=== PATIENT | male | born 1970 | race Two or more races ===

== ENCOUNTER 2021-10-06 13:11 | Emergency (ER) | payer MEDICAID ==
[~2021-10-06] VITALS: Ht 180.3 cm; Wt 71.0 kg
[2021-10-06 13:14] VITALS: BP 156/100
[2021-10-06] MEDS ORDERED: MORPHINE SULFATE 4 MG/ML CPJ (NOT FOR IM USE) IV STA (13:36)
[2021-10-06] MEDS ORDERED: ONDANSETRON HCL 4MG/2ML INJ IV STA (13:36)
[2021-10-06] MEDS ORDERED: KETOROLAC 30MG/ML VIAL IV STA (13:36)
[2021-10-06] MEDS ORDERED: SODIUM CHLORIDE 0.9% 1,000 ML IV ONE (13:45)
[2021-10-06 13:53] LABS: CLARITY URINE CLEAR (CLEAR); COLOR URINE YELLOW (YELLOW); KETONES URINE NEGATIVE (NEGATIVE); LEUKOCYTE ESTERASE URINE NEGATIVE (NEGATIVE); NITRITE URINE NEGATIVE (NEGATIVE); OCCULT BLOOD URINE NEGATIVE (NEGATIVE); PH URINE 7.5 (4.5-8.0); PROTEIN URINE NEGATIVE (NEGATIVE); SPECIFIC GRAVITY URINE 1.024 (1.005-1.030); UROBILINOGEN URINE 0.2 E.U./dL (0.2-1.0)
[2021-10-06 14:08] LABS: EOSINOPHILS % 3.4 % (0.0-5.0); HEMATOCRIT. 45.6 % (42.0-52.0); HEMOGLOBIN. 15.6 g/dL (14.0-18.0); LYMPHOCYTES % 22.2 % (20.0-50.0); MEAN CORPUSCULAR HEMOGLOBIN 29.9 pg (28.0-32.0); MEAN CORPUSCULAR VOLUME 87.6 fL (80.0-94.0); MONOCYTES % 7.2 % (2.0-8.0); NEUTROPHILS % 66.2 % (40.0-76.0); PLATELET 182 x1000/uL (130-400); RED BLOOD CELL COUNT 5.21 mill/uL (4.7-6.1); RED CELL DISTRIBUTION WIDTH 12.9 % (11.6-14.6)
[2021-10-06 14:18] LABS: INR 0.9; PROTHROMBIN TIME 10.2 sec (9.6-11.0)
[2021-10-06 14:20] LABS: CHLORIDE 100 mEq/L (98-107)
[2021-10-06] MEDS ORDERED: TAMSULOSIN HCL 0.4MG SR CAPSULE PO NR (15:00)
[2021-10-06] MEDS ORDERED: CIPR500S3 PO (15:27)
[2021-10-06] MEDS ORDERED: HYDR-4009 MT (15:27)
[2021-10-06] MEDS ORDERED: TAMS-11 MT (15:27)
[2021-10-06] MEDS ORDERED: CIPR-263 MT (15:27)
== END 2021-10-06 16:25 | disposition home or self-care (01) ==
LOC: ER 13:11
DX: N36.8 Other specified disorders of urethra (principal); E11.9 Type 2 diabetes mellitus without complications; E78.00 Pure hypercholesterolemia, unspecified; Z87.440 Personal history of urinary (tract) infections
CPT/HCPCS: 36415; 74176; 80053; 81003; 83690; 85025; 85610; 96374; 96375; 99284; J1885; J2405; J7030